=== PATIENT | male | born 1965 | race African-American/Black ===

== ENCOUNTER 2017-04-12 18:25 | Emergency (ER) | payer SELFPAY ==
[~2017-04-12] VITALS: Ht 175.3 cm; Wt 74.8 kg
[2017-04-12] MEDS ORDERED: AZITHROMYCIN 500 MG TABLET PO ONE (19:00)
[2017-04-12] MEDS ORDERED: AZITHROMYCIN 500 MG TABLET ONE (19:00)
[2017-04-12] MEDS ORDERED: CEFTRIAXONE 250 MG ONE (19:00)
[2017-04-12] MEDS ORDERED: LIDOCAINE 1%, 20ML ONE (19:00)
[2017-04-12] MEDS ORDERED: CEFTRIAXONE 250 MG IM ONE (19:00)
[2017-04-12 20:21] VITALS: BP 135/93
== END 2017-04-12 20:26 | disposition home or self-care (01) ==
LOC: ED 20:20
DX: N30.00 Acute cystitis without hematuria (principal); N34.1 Nonspecific urethritis
CPT/HCPCS: 81001; 87086; 87491; 87591; 96372; 99284; J0696